=== PATIENT | female | born 1940 | race Caucasian/White ===

== ENCOUNTER 2021-11-06 09:13 | Day surgery (SDC) | payer MEDICARE ==
[2021-11-04 11:23] LABS: BASOPHILS % (AUTO) 0.7 % (0.0-5.0); EOSINOPHILS % (AUTO) 0.7 % (0.0-8.0); HEMATOCRIT 40.5 % (36-48); LYMPHOCYTES % (AUTO) 22.7 % (21.0-51.0); MEAN CORPUSCULAR HEMOGLOBIN 28.5 pg (27.0-33.0); MEAN CORPUSCULAR HGB CONC 33.3 g/dL (32.0-36.0); MEAN CORPUSCULAR VOLUME 85.4 fL (79-99); MONOCYTES % (AUTO) 8.7 % (3.0-13.0); NEUTROPHILS % (AUTO) 67.2 % (40.0-77.0); PLATELET COUNT (AUTO) 300 K/uL (130-400); RED BLOOD CELL COUNT(AUTO) 4.74 MIL/uL (4.00-5.50); RED CELL DISTRIBUTION WIDTH 12.1 % (11.0-15.5); WHITE BLOOD COUNT (AUTO) 5.8 K/uL (4.8-10.8)
[2021-11-04 11:27] LABS: CREATININE 0.6 mg/dL (0.5-1.5); POTASSIUM 3.3 mmol/L (3.5-5.1)
[2021-11-04 11:30] LABS: PROTHROMBIN TIME 10.9 SEC (9.6-11.6)
[2021-11-04 11:31] LABS: PARTIAL THROMBOPLASTIN TIME 28.3 SEC (26.3-35.5)
[2021-11-04 15:31] VITALS: BP 184/83
[~2021-11-06] VITALS: Ht 157.5 cm; Wt 52.2 kg
[2021-11-06] VITALS (18 sets, daily range): BP systolic 113–169; BP diastolic 53–100
[~2021-11-06 09:13] MED LIST: ALBU18HF7 IH; ALEN70TA80 PO; AMLO5TAB4 PO; CALC-1038 PO; DONE10TA43 PO; DOXY50TA3 PO; FLAX100020 PO; HYDR25TA PO; LEVO112T4 PO; LIDOCAINE 1%-EPI 1:100,000 20 ML VIAL IJ PRN; MV-M1TAB20 PO; PROP15DR OP; SERT50TA PO; SIMV-43 PO
[2021-11-06] MEDS ORDERED: LACTATED RINGERS 1000ML 1,000 ML IV ONE (10:54)
[2021-11-06] MEDS ORDERED: BACITRACIN 28.4 GM OINT TP ONE (11:57)
[2021-11-06] MEDS ORDERED: LIDOCAINE 1%-EPI 1:100,000 20 ML VIAL IJ ONE (11:57)
[2021-11-06] MEDS ORDERED: MIDAZOLAM HCL 1 MG/ML 2ML VIAL ONE (12:15)
[2021-11-06] MEDS ORDERED: PROPOFOL 10 MG/ML 20ML VIAL IV ONE ×2 (12:15→13:23)
[2021-11-06] MEDS ORDERED: LIDOCAINE PF 100MG/5ML (2%) SYRINGE 5ML ONE (12:15)
[2021-11-06] MEDS ORDERED: FENTANYL CITRATE PF 50 MCG/1 ML 5ML AMP IV ONE (12:16)
[2021-11-06] MEDS ORDERED: ROCURONIUM 10MG/1ML SYR 10 MG/ML ML ONE (12:22)
[2021-11-06] MEDS ORDERED: SUCCINYLCHOLINE 200MG/10ML SYR ONE (12:22)
[2021-11-06] MEDS: CEFAZOLIN SODIUM 1 GM VIAL ONE ×2 (12:32→12:51)
[2021-11-06] MEDS ORDERED: GLYCOPYRROLATE 1 MG/5 ML SYRINGE ONE (12:48)
[2021-11-06] MEDS ORDERED: MEPERIDINE-PF 25 MG/ML SYG ONE (14:45)
== END 2021-11-06 16:30 | disposition home or self-care (01) ==
LOC: DAH 09:13
PROVIDERS: ATTEND Otolaryngology Plastic Surgery within the Head & Neck
DX: C44.321 Squamous cell carcinoma of skin of nose (principal); Z79.01 Long term (current) use of anticoagulants; Z79.899 Other long term (current) drug therapy; Z90.710 Acquired absence of both cervix and uterus; Z98.51 Tubal ligation status; Z98.890 Other specified postprocedural states; Z82.49 Family history of ischemic heart disease and other diseases of the circulatory system; Z82.0 Family history of epilepsy and other diseases of the nervous system; Z90.13 Acquired absence of bilateral breasts and nipples
CPT/HCPCS: 14061; 36415; 71045; 80048; 85025; 85610; 85730; 87635; 88305; 88331; 88332; 93005; A4215; A4221; A4222; A4223; A4600; A4606; A4663; A6223; A6260; C9803; J0330; J0690; J2001; J2175; J2250; J2704 ×2; J3010; J3490 ×2; J7120

== ENCOUNTER 2021-12-04 09:43 | Day surgery (SDC) | payer MEDICARE ==
[2021-11-27 10:06] LABS: HEMATOCRIT 36.6 % (36-48); LYMPHOCYTES % (AUTO) 26.6 % (21.0-51.0); MEAN CORPUSCULAR HEMOGLOBIN 28.6 pg (27.0-33.0); MEAN CORPUSCULAR HGB CONC 33.3 g/dL (32.0-36.0); MEAN CORPUSCULAR VOLUME 85.9 fL (79-99); MONOCYTES % (AUTO) 8.9 % (3.0-13.0); NEUTROPHILS % (AUTO) 62.2 % (40.0-77.0); PLATELET COUNT (AUTO) 252 K/uL (130-400); RED BLOOD CELL COUNT(AUTO) 4.26 MIL/uL (4.00-5.50); RED CELL DISTRIBUTION WIDTH 12.1 % (11.0-15.5); WHITE BLOOD COUNT (AUTO) 6.3 K/uL (4.8-10.8)
[2021-11-27 10:18] LABS: INR 0.94 (0.85-1.15); PROTHROMBIN TIME 10.3 SEC (9.6-11.6)
[2021-11-27 10:19] LABS: PARTIAL THROMBOPLASTIN TIME 27.4 SEC (26.3-35.5)
[2021-11-27 10:24] LABS: CREATININE 0.7 mg/dL (0.5-1.5); POTASSIUM 3.1 mmol/L (3.5-5.1)
[2021-12-03 09:01] VITALS: BP 186/77
[~2021-12-04] VITALS: Ht 157.5 cm; Wt 51.4 kg
[2021-12-04] VITALS (12 sets, daily range): BP systolic 102–157; BP diastolic 37–67
[~2021-12-04 09:43] MED LIST changes: -DONE10TA43 PO; -FLAX100020 PO; -LIDOCAINE 1%-EPI 1:100,000 20 ML VIAL IJ PRN
[2021-12-04] MEDS ORDERED: LACTATED RINGERS 1000ML 1,000 ML IV ONE (10:27)
[2021-12-04] MEDS: CEFAZOLIN SODIUM 1 GM VIAL ONE ×2 (10:35→12:09)
[2021-12-04] MEDS ORDERED: LIDOCAINE 1%-EPI 1:100,000 20 ML VIAL IJ ONE (11:21)
[2021-12-04] MEDS ORDERED: PROPOFOL 1000 MG/100 ML 200 ML IV ONE (11:40)
[2021-12-04] MEDS ORDERED: PHENYLEPHRINE HCL 10 MG/ML 1ML VIAL IV ONE (11:40)
[2021-12-04] MEDS ORDERED: GLYCOPYRROLATE 1 MG/5 ML SYRINGE ONE (11:41)
[2021-12-04] MEDS ORDERED: LIDOCAINE HCL-MPF 2% 5ML VIAL ONE (11:41)
[2021-12-04] MEDS ORDERED: ROCURONIUM 10MG/1ML SYR 10 MG/ML ML ONE (11:41)
[2021-12-04] MEDS ORDERED: FENTANYL CITRATE PF 50 MCG/1 ML 2ML VIAL ONE (11:42)
[2021-12-04] MEDS ORDERED: ONDANSETRON 4MG INJ ONE (12:14)
[2021-12-04] MEDS: BACITRACIN 28.4 GM OINT TP ONE (13:25)
[2021-12-04] MEDS ORDERED: NEOSTIGMINE 5MG/5ML SYR IV ONE (13:27)
[2021-12-04] MEDS ORDERED: MEPERIDINE-PF 25 MG/ML SYG ONE (13:47)
== END 2021-12-04 14:45 | disposition home or self-care (01) ==
LOC: DAH 09:43
PROVIDERS: ATTEND Otolaryngology Plastic Surgery within the Head & Neck
DX: C44.321 Squamous cell carcinoma of skin of nose (principal); I10 Essential (primary) hypertension; J45.909 Unspecified asthma, uncomplicated; Z82.49 Family history of ischemic heart disease and other diseases of the circulatory system; Z82.0 Family history of epilepsy and other diseases of the nervous system; Z90.13 Acquired absence of bilateral breasts and nipples; Z79.899 Other long term (current) drug therapy; Z79.01 Long term (current) use of anticoagulants; Z98.890 Other specified postprocedural states; Z90.710 Acquired absence of both cervix and uterus; Z98.51 Tubal ligation status
CPT/HCPCS: 15630; 36415; 71045; 80048; 85025; 85610; 85730; 87635; 93005; A4215; A4221; A4222; A4223; A4600; A4606; A4663; C9803; J0690; J2175; J2370; J2405; J2704; J2710; J3010; J3490 ×3; J7120

== ENCOUNTER 2022-01-29 06:50 | Day surgery (SDC) | payer MEDICARE ==
[2022-01-28 10:57] LABS: BASOPHILS % (AUTO) 0.9 % (0.0-5.0); EOSINOPHILS % (AUTO) 1.2 % (0.0-8.0); HEMATOCRIT 39.6 % (36-48); LYMPHOCYTES % (AUTO) 26.6 % (21.0-51.0); MEAN CORPUSCULAR HEMOGLOBIN 29.3 pg (27.0-33.0); MEAN CORPUSCULAR HGB CONC 34.6 g/dL (32.0-36.0); MEAN CORPUSCULAR VOLUME 84.8 fL (79-99); MONOCYTES % (AUTO) 10.1 % (3.0-13.0); PLATELET COUNT (AUTO) 309 K/uL (130-400); RED BLOOD CELL COUNT(AUTO) 4.67 MIL/uL (4.00-5.50); WHITE BLOOD COUNT (AUTO) 5.6 K/uL (4.8-10.8)
[2022-01-28 11:08] LABS: CREATININE 0.7 mg/dL (0.5-1.5); POTASSIUM 3.4 mmol/L (3.5-5.1)
[2022-01-28 13:00] LABS: INR 0.94 (0.85-1.15); PROTHROMBIN TIME 10.3 SEC (9.6-11.6)
[2022-01-28 13:02] LABS: PARTIAL THROMBOPLASTIN TIME 28.6 SEC (26.3-35.5)
[2022-01-28 16:42] VITALS: BP 141/81
[2022-01-29] VITALS (16 sets, daily range): BP systolic 117–179; BP diastolic 56–80
[~2022-01-29] VITALS: Ht 154.9 cm; Wt 50.6 kg
[2022-01-29] MEDS: CEFAZOLIN SODIUM 1 GM VIAL IVP SCH ×2 (05:00→10:11)
[~2022-01-29 06:50] MED LIST changes: -ALBU18HF7 IH; -CALC-1038 PO; -DOXY50TA3 PO; -MV-M1TAB20 PO; -PROP15DR OP; -SERT50TA PO
[2022-01-29] MEDS ORDERED: LIDOCAINE 1%-EPI 1:100,000 20 ML VIAL IJ ONE (07:04)
[2022-01-29] MEDS ORDERED: LACTATED RINGERS 1000ML 1,000 ML IV ONE (07:08)
[2022-01-29] MEDS ORDERED: SUCCINYLCHOLINE 200MG/10ML SYR ONE (09:55)
[2022-01-29] MEDS ORDERED: LIDOCAINE PF 100MG/5ML (2%) SYRINGE 5ML ONE (09:55)
[2022-01-29] MEDS ORDERED: DEXAMETHASONE SOD PHOSPHATE 10MG/ML 1ML VIAL ONE ×2 (09:55→10:24)
[2022-01-29] MEDS ORDERED: MIDAZOLAM HCL 1 MG/ML 2ML VIAL ONE (09:55)
[2022-01-29] MEDS ORDERED: PROPOFOL 10 MG/ML 20ML VIAL IV ONE (09:56)
[2022-01-29] MEDS ORDERED: GLYCOPYRROLATE 1 MG/5 ML SYRINGE ONE (09:56)
[2022-01-29] MEDS ORDERED: FENTANYL CITRATE PF 50 MCG/1 ML 2ML VIAL ONE (09:56)
[2022-01-29] MEDS ORDERED: NEOSTIGMINE 5MG/5ML SYR IV ONE (09:56)
[2022-01-29] MEDS ORDERED: ONDANSETRON 4MG INJ ONE (09:56)
[2022-01-29] MEDS ORDERED: ROCURONIUM 10MG/1ML SYR 10 MG/ML ML ONE (09:56)
[2022-01-29] MEDS ORDERED: METOCLOPRAMIDE 10 MG/2 ML VIAL ONE (10:24)
[2022-01-29] MEDS ORDERED: BACITRACIN 28.4 GM OINT TP ONE (11:13)
[2022-01-29] MEDS ORDERED: MEPERIDINE-PF 25 MG/ML SYG ONE (11:47)
== END 2022-01-29 12:40 | disposition home or self-care (01) ==
LOC: DAH 06:50
PROVIDERS: ATTEND Otolaryngology Plastic Surgery within the Head & Neck
DX: C08.0 Malignant neoplasm of submandibular gland (principal); Z79.01 Long term (current) use of anticoagulants; Z87.891 Personal history of nicotine dependence; Z88.8 Allergy status to other drugs, medicaments and biological substances; Z79.890 Hormone replacement therapy; Z79.899 Other long term (current) drug therapy; Z82.49 Family history of ischemic heart disease and other diseases of the circulatory system; Z82.0 Family history of epilepsy and other diseases of the nervous system; Z98.890 Other specified postprocedural states; Z90.710 Acquired absence of both cervix and uterus; Z90.13 Acquired absence of bilateral breasts and nipples
CPT/HCPCS: 36415; 80048; 85025; 85610; 85730; 87426; A4606; J0330; J0690; J1100; J2001; J2175; J2250; J2405; J2704; J2710; J2765; J3010; J3490; J7120